=== PATIENT | female | born 1975 | race Caucasian/White ===

== ENCOUNTER → 2017-04-03 | Outpatient (REF) ==
[~2017-04-03] MED LIST: CEFACLOR250 MG PO; CELEXA 20MG20 MG/TAB PO; CEPHALEXIN500 M1 PO; COMBIRESP IH; EC-NAPROSYN500 MG PO; FLOVENT 44MCG I13 GM IH; LAMICTAL150 MG PO; MOTRIN 800800 MG/TAB PO; NEURONTIN600 MG/TAB PO; PEPCID 20MG TAB20 MG PO; SINGULAIR 110 MG/TAB PO; SYNTHROID0.3 MG PO; TOPAMAX 100MG100 M1 PO; TREXIMET 500 MG1 TAB PO; VESICARE10 MG PO; VITAMIN D32000 I1 PO; WOMEN'S DAILY F1 TAB PO
== END ==
LOC: ZLAB.WCH 17:58
DX: Z01.89 Encounter for other specified special examinations (principal)

== ENCOUNTER → 2018-01-11 | Outpatient (REF) | LOC: ZLAB.WCH 08:27 | DX: Z01.89 Encounter for other specified special examinations (principal) ==

== ENCOUNTER → 2018-05-28 | Outpatient (CLI) | payer MEDICAID, OTHER ==
[2018-05-28 19:19] LABS: CALCIUM 9.1 mg/dL (8.4-10.2); CREATININE, serum 0.87 mg/dL (0.52-1.25); POTASSIUM 4.4 mmol/L (3.4-5.0); TSH w REFLEX 21.8 uIU/mL (0.465-4.680)
[2018-05-28 19:36] LABS: BILIRUBIN,TOTAL 0.5 mg/dL (0.0-1.0); TOTAL PROTEIN 7.2 gm/dL (6.4-8.2)
== END ==
LOC: ZCOL.LAB 16:49
PROVIDERS: Family Medicine
DX: Z13.1 Encounter for screening for diabetes mellitus (principal); E78.5 Hyperlipidemia, unspecified; E03.9 Hypothyroidism, unspecified

== ENCOUNTER → 2018-07-05 | Outpatient (CLI) | payer MEDICAID | LOC: MC.RAD 15:11 | DX: Z12.31 Encounter for screening mammogram for malignant neoplasm of breast (principal) ==

== ENCOUNTER → 2018-07-11 | Outpatient (CLI) | payer MEDICAID ==
[2018-07-11 14:17] LABS: THYROID STIMULATING HORMONE 3.49 uIU/mL (0.465-4.680)
== END ==
LOC: ZCOL.LAB 12:22
PROVIDERS: Family Medicine
DX: R79.89 Other specified abnormal findings of blood chemistry (principal)

== ENCOUNTER → 2018-09-25 | Outpatient (CLI) | payer MEDICAID, OTHER ==
[~2018-09-25] MED LIST changes: +ABILIFY 15MG TA15 MG PO; +HCTZ12.5TAB PO; -LAMICTAL150 MG PO; +LAMICTAL200 MG PO; +MEVACOR10 MG PO; -NEURONTIN600 MG/TAB PO; +NEURONTIN800 MG/TAB PO; +RELAFEN750 MG PO; -VITAMIN D32000 I1 PO; +VITAMIND3 5000 PO; +[UNRECOGNIZED DRUG - OTHER] PO
== END ==
LOC: LIGHT 09:13
DX: E03.9 Hypothyroidism, unspecified (principal); G47.33 Obstructive sleep apnea (adult) (pediatric); E16.9 Disorder of pancreatic internal secretion, unspecified; E66.01 Morbid (severe) obesity due to excess calories; Z68.42 Body mass index [BMI] 45.0-49.9, adult; Z71.3 Dietary counseling and surveillance

== ENCOUNTER → 2018-12-21 | Outpatient (REF) | LOC: ZLAB.WCH 15:55 | DX: Z01.89 Encounter for other specified special examinations (principal) ==

== ENCOUNTER → 2019-04-24 | Outpatient (CLI) | payer MEDICAID | LOC: COL.LAB 13:24 | DX: J30.9 Allergic rhinitis, unspecified (principal) ==

== ENCOUNTER → 2020-01-23 | Outpatient (CLI) | payer MEDICAID, OTHER ==
[~2020-01-23] VITALS: Ht 165.1 cm; Wt 142.9 kg
[~2020-01-23] MED LIST changes: +ALBUTEROL0.83 MG/ML IH; +ATARAX50 MG PO; +BACTROBAN 22GM22 GM TP; -CELEXA 20MG20 MG/TAB PO; -COMBIRESP IH; +D3-5050000 IU PO; +HCTZ 25MG TAB25 MG PO; -HCTZ12.5TAB PO; +ISIBLOOM PO; +LEXAPRO20 MG PO; +MEVACOR 20M20 MG/TAB PO; -MEVACOR10 MG PO; +MOBIC15 MG PO; +MULTIVITAMIN FO1 CAP PO; +NYSTATIN CREAM15 GM TP; +NYSTATIN POWDER30 GM TOP; +QUALITY CHOI500 U/GM TOP; +RT ADVAIR HFA 2312 G IH; +SPIRIVA RESPIMAT4 GM IH; +SYNTHROID 0.0.025 MG PO; +TEMOVATE45CR TOP; +TRIAMCINOLONE A15 GM TP; +ULTRAM 50MG TAB50 MG PO; +VENTOLIN0.09 MG IH; -VITAMIND3 5000 PO
[2020-01-23 09:14] VITALS: BP 134/78; PULSE 76
== END ==
LOC: LIGHT 07-16 11:06
DX: E66.01 Morbid (severe) obesity due to excess calories (principal); Z68.43 Body mass index [BMI] 50.0-59.9, adult; E03.9 Hypothyroidism, unspecified; E16.1 Other hypoglycemia; G47.30 Sleep apnea, unspecified
CPT/HCPCS: G0463

== ENCOUNTER → 2020-02-20 | Outpatient (CLI) | payer MEDICAID, OTHER ==
[~2020-02-20] VITALS: Ht 165.1 cm; Wt 142.7 kg
[2020-02-20 14:11] VITALS: BP 116/64; PULSE 80
== END ==
LOC: LIGHT 11:36
DX: E66.01 Morbid (severe) obesity due to excess calories (principal); Z68.43 Body mass index [BMI] 50.0-59.9, adult; E03.9 Hypothyroidism, unspecified; E16.1 Other hypoglycemia
CPT/HCPCS: G0463

== ENCOUNTER → 2020-05-05 | Outpatient (CLI) | payer MEDICAID, OTHER ==
[~2020-05-05] VITALS: Ht 165.1 cm; Wt 143.3 kg
[2020-05-05 15:40] VITALS: BP 110/70; PULSE 80
== END ==
LOC: LIGHT 04-02 13:27
DX: E66.01 Morbid (severe) obesity due to excess calories (principal); Z68.43 Body mass index [BMI] 50.0-59.9, adult; E78.5 Hyperlipidemia, unspecified; G47.30 Sleep apnea, unspecified
CPT/HCPCS: G0463

== ENCOUNTER → 2020-08-12 | Outpatient (CLI) | payer MEDICAID, OTHER | LOC: COL.RAD 09:45 | DX: M51.36 Other intervertebral disc degeneration, lumbar region (principal); M47.816 Spondylosis without myelopathy or radiculopathy, lumbar region ==

== ENCOUNTER → 2020-12-24 | Outpatient (CLI) | payer MEDICAID ==
[~2020-12-24] MED LIST changes: +CATAFLAM50 MG PO; +CLARITIN 1010 MG/TAB PO; +GEMTESA75 MG PO; +SAXENDA6 MG/ML SQ; +WELLBUTRIN XL150 MG PO
== END ==
LOC: MC.RAD 10:47
DX: Z12.31 Encounter for screening mammogram for malignant neoplasm of breast (principal)

== ENCOUNTER 2021-03-02 12:04 | Day surgery (SDC) | payer MEDICAID ==
[~2021-03-02] VITALS: Ht 165.1 cm; Wt 145.2 kg
[~2021-03-02 12:04] MED LIST changes: -CATAFLAM50 MG PO; -CLARITIN 1010 MG/TAB PO; -GEMTESA75 MG PO; -SAXENDA6 MG/ML SQ; -WELLBUTRIN XL150 MG PO
[2021-03-02 13:11] VITALS: BP 125/78; PULSE 86; TEMP 98.5
[2021-03-02] MEDS ORDERED: SAXENDA6 MG/ML SQ (13:37)
[2021-03-02] MEDS ORDERED: GEMTESA75 MG PO (13:37)
[2021-03-02] MEDS ORDERED: WELLBUTRIN XL150 MG PO (13:39)
[2021-03-02] MEDS ORDERED: CATAFLAM50 MG PO (13:39)
[2021-03-02] MEDS ORDERED: CLARITIN 1010 MG/TAB PO (13:45)
[2021-03-02 15:40] VITALS: BP 126/66; PULSE 94; TEMP 98
--- NOTE | 2021-03-02 15:40 | NUR ---
Pt returned via cart to [facility]. Report received from Cynthia [employer]. Pt A&O. Denies complaints. VSS-see flowsheet. Given jelly toast and coffee. Pt has tolerated water while in PACU. Side rails up and call light in reach.
[2021-03-02 15:45] VITALS: BP 107/45; PULSE 107
[2021-03-02 16:00] VITALS: BP 109/65; PULSE 101
--- NOTE | 2021-03-02 16:14 | NUR ---
VS remain stable-see flowsheet. Pt tolerated coffee and toast. Denies needs or complaints. Reports she is ready to go but her spouse had to leave to get to work and so her friend will pick her up as soon as she is able.
[2021-03-02 16:30] VITALS: BP 110/68; PULSE 86
--- NOTE | 2021-03-02 17:00 | NUR ---
Pts IV removed, pressure dressing applied. Pt dressed independently. Discharge teaching completed, pt verbalized understanding. Pt taken via wheelchair to private vehicle for friend, Carmela, to drive pt home.
[2021-03-02 17:02] VITALS: BP 126/66; PULSE 92; TEMP 100.1
== END 2021-03-02 17:00 | disposition home or self-care (01) ==
LOC: SDCO 12:04
DX: N39.46 Mixed incontinence (principal); R35.0 Frequency of micturition; E03.9 Hypothyroidism, unspecified; J45.909 Unspecified asthma, uncomplicated; I10 Essential (primary) hypertension; G62.9 Polyneuropathy, unspecified; G43.909 Migraine, unspecified, not intractable, without status migrainosus; F31.9 Bipolar disorder, unspecified; F17.200 Nicotine dependence, unspecified, uncomplicated; Z98.51 Tubal ligation status; Z79.899 Other long term (current) drug therapy; Z79.890 Hormone replacement therapy
CPT/HCPCS: A4215; J0585; J2704; J3010